=== PATIENT | male | born 1990 | race Hispanic/Latino ===

== ENCOUNTER 2022-10-16 17:43 | Emergency (ER) | payer BC, SELFPAY ==
[2022-10-16] MEDS ORDERED: TDAP (DIPHTH,PERTUSS(ACELL),TET VAC) 0.5 ML VIAL IMVAC ONE (18:18)
[2022-10-16] MEDS ORDERED: MORPHINE 4 MG/ML SYR ONE ×2 (18:18→19:39)
[2022-10-16] MEDS ORDERED: NA CHLORIDE 0.9% 1,000 ML ONE (18:18)
[2022-10-16] MEDS ORDERED: ONDANSETRON 4 MG/2 ML VIAL ONE (18:18)
[2022-10-16 18:32] LABS: Protime INR 1.13
[2022-10-16 18:34] LABS: Absolute Lymphocytes (CBC) 3.6 K/uL (0.7-4.9); Hematocrit 41.9 % (39.6-49.0); Lymphocytes % 29.6 % (15.3-44.8); MCV 90.3 fL (80-100); MPV 8.9 fL (7.6-11.3); RBC Red Blood Cell Count 4.64 M/uL (4.33-5.43)
[2022-10-16 18:42] LABS: Potassium 3.5 mmol/L (3.5-5.1)
--- NOTE | 2022-10-16 18:54 | RAD REPORT ---
EXAM DESCRIPTION: RAD -Hand Left 3 View - 10/16/2022 6:08 pm CLINICAL HISTORY: Left hand pain status post injury FINDINGS: No fracture or dislocation is seen. Tiny radiopaque densities within the wrist
--- NOTE | 2022-10-16 18:55 | RAD REPORT ---
EXAM DESCRIPTION: RAD - Femur Right - 10/16/2022 6:08 pm CLINICAL HISTORY: Leg pain FINDINGS: No fracture is seen. 1 centimeter density with a surrounding hematoma at the site injury within the medial lower aspect of right upper like
[2022-10-16] MEDS ORDERED: LIDOCAINE 1% MPF 5 ML VIAL ONE (19:39)
[2022-10-16] MEDS ORDERED: BUPIVACAINE 0.5% PF 10 ML VIAL ONE (19:40)
[2022-10-16] MEDS ORDERED: LIDOCAINE 1% MPF 30 ML VIAL ONE (19:42)
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
[2022-10-16] MEDS ORDERED: CEFAZOLIN SODIUM 1 GM/VIAL ONE (21:11)
[2022-10-16] MEDS ORDERED: NA CHLORIDE 0.9% 100 ML ONE (21:11)
[2022-10-16 23:01] VITALS: BP 130/88; O2SAT 97
[2022-10-16 23:02] VITALS: TEMP 98.6
== END 2022-10-16 22:24 | disposition home or self-care (01) ==
LOC: ER 17:43
PROC: 0HQGXZZ Repair Left Hand Skin, External Approach (ICD-10-PCS; principal; 2022-10-16)
PROC: 0HQKXZZ Repair Right Lower Leg Skin, External Approach (ICD-10-PCS; 2022-10-16)
DX: S61.412A Laceration without foreign body of left hand, initial encounter (principal); S76.921A Laceration of unspecified muscles, fascia and tendons at thigh level, right thigh, initial encounter; W32.0XXA Accidental handgun discharge, initial encounter; Z23 Encounter for immunization
CPT/HCPCS: 85025; 80048; 36415; 86900; 86850; 85610; 86901; 73130; 73552; 90471; 99285; 12004; J2001; J7030; J2405; J0690